=== PATIENT | male | born 2000 | race Caucasian/White ===

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

== ENCOUNTER 2020-06-03 21:31 | Emergency (ER) | payer OTHER ==
[~2020-06-03] VITALS: Ht 188 cm; Wt 96.0 kg
--- NOTE | 2020-06-03 23:16 | NUR ---
pt to room from lobby
[2020-06-03 23:36] VITALS: BP 136/88
[2020-06-03] MEDS ORDERED: IBUPROFEN 600 MG TABLET ONE (23:37)
--- NOTE | 2020-06-03 23:39 | NUR ---
PT MEDICATED PER EMAR. AWAITING DISCHARGE PAPERWORK AT THIS TIME
--- NOTE | 2020-06-03 23:52 | NUR ---
Patient/Caregiver given discharge instructions and they have confirmed that they understand the instructions. Patient ambulatory with steady gait.
[2020-06-04] MEDS ORDERED: IBUPROFEN 600 MG TABLET PO ONE
== END 2020-06-04 00:02 | disposition home or self-care (01) ==
LOC: ED 23:30
DX: S76.011A Strain of muscle, fascia and tendon of right hip, initial encounter (principal); S73.111A Iliofemoral ligament sprain of right hip, initial encounter; X58.XXXA Exposure to other specified factors, initial encounter; Y93.89 Activity, other specified; Y92.009 Unspecified place in unspecified non-institutional (private) residence as the place of occurrence of the external cause; Y99.8 Other external cause status
CPT/HCPCS: 99283